=== PATIENT | male | born 1965 | race Asian ===

== ENCOUNTER 2017-09-10 11:25 | Emergency (ER) | payer OTHER ==
[~2017-09-10] VITALS: Ht 165.1 cm; Wt 72.6 kg
--- NOTE | 2017-09-10 11:47 | ER.PDOC ---
General Chief Complaint: Extremities Stated Complaint: HAND INJURY Time seen by MD: 11:40 Source: patient Exam Limitations: no limitations History of Present Illness Occurred: last week Where: work Severity: mild Context: other (twisting injury) Location of Injury: (R) hand Past Medical History Medical History: hypertension Surgical History: no surgical history Social History Smoking: less than 1 pack/day Alcohol Use: none Drug Use: none Review of Systems Musculoskeletal: see HPI Physical Exam General Appearance: Alert, No Apparent Distress Hand: nml inspection, non-tender, no evidence FB Wrist: nml inspection, non-tender, nml ROM 1 - Neuro: sensation nml, motor nml Vascular: no vascular compromise Tendons: tendon function nml Forearm/Elbow/Arm: uninjured above wrist Skin: warm/dry Head/ENT: nml inspection, pharynx nml Neck/Back: nml inspection, non-tender Resp/CVS: no resp distress, lungs clear, heart sounds nml, reg. rate & rhythm Abdomen: non-tender, no organomegaly EKG/XRAY/CT/US XRAY: hand (normal) Departure Time of Disposition: 12:21 Disposition: 01 HOME, SELF-CARE Impression: Primary Impression: Gout Additional Impression: Hand contusion Condition: Stable REMIGIO DOLL MD Sep 10, 2017 11:47
--- NOTE | 2017-09-10 12:15 | DIREP ---
PROCEDURE:XRAY HAND MIN 3 VW-RT COMPARISON:None. INDICATIONS:SWELLING FINDINGS: BONES:Normal. JOINTS:Normal. SOFT TISSUES:Normal. OTHER:No additional findings. CONCLUSION:Normal examination. Dictated by: Nathaniel Morgan Jr. on 09/10/2017 at 12:14 PM
== END 2017-09-10 12:43 | disposition home or self-care (01) ==
LOC: ER 11:25
DX: M10.9 Gout, unspecified (principal); S60.221A Contusion of right hand, initial encounter; I10 Essential (primary) hypertension; F17.200 Nicotine dependence, unspecified, uncomplicated; X50.1XXA Overexertion from prolonged static or awkward postures, initial encounter; Y93.89 Activity, other specified; Y92.69 Other specified industrial and construction area as the place of occurrence of the external cause; Y99.0 Civilian activity done for income or pay
CPT/HCPCS: 29125; 99284; 73130-RT